=== PATIENT | female | born 1965 ===

== ENCOUNTER 2020-12-01 08:13 | Emergency (ER) | payer OTHER ==
[~2020-12-01] VITALS: Ht 162.6 cm; Wt 70.0 kg
[~2020-12-01 08:13] MED LIST: IBUP800 PO; ONDA8 PO; OXYACE5T PO; SUMA25; SUMA25 PO; TOPI25; [UNRECOGNIZED DRUG - REMARK] PO
== END 2020-12-01 10:45 | disposition home or self-care (01) ==
LOC: ER 08:13
DX: S20.212A Contusion of left front wall of thorax, initial encounter (principal); S40.021A Contusion of right upper arm, initial encounter; S09.90XA Unspecified injury of head, initial encounter; W22.8XXA Striking against or struck by other objects, initial encounter
CPT/HCPCS: 71101; 99283-25